=== PATIENT | male | born 1985 | race Caucasian/White ===

== ENCOUNTER 2016-08-13 13:18 | Emergency (ER) | payer MEDICAID ==
[~2016-08-13] VITALS: Ht 172.7 cm; Wt 70.0 kg
[2016-08-13] MEDS ORDERED: SODIUM CHLORIDE 0.9% 1,000 ML IV ONE ×2 (13:29→20:03)
[2016-08-13] MEDS ORDERED: OLANZAPINE 10 MG/VIAL IM ONE ×2 (13:30→13:37)
[2016-08-13] MEDS ORDERED: LORAZEPAM 2MG/ML CPJ IV ONE ×2 (13:30→20:15)
[2016-08-13] MEDS ORDERED: LORAZEPAM 2MG/ML CPJ ONE (13:37)
[2016-08-13 14:42] LABS: BASOPHILS % 0.5 % (0.0-2.0); EOSINOPHILS % 0.4 % (0.0-5.0); HEMATOCRIT. 37.2 % (42.0-52.0); LYMPHOCYTES % 17.3 % (20.0-50.0); MEAN CORPUSCULAR VOLUME 85.7 fL (80.0-94.0); MEAN PLATELET VOLUME 6.5 fl (7.4-10.4); MONOCYTES % 7.3 % (2.0-8.0); NEUTROPHILS % 74.5 % (40.0-76.0); PLATELET 297 x1000/uL (130-400); RED BLOOD CELL COUNT 4.35 mill/uL (4.7-6.1); RED CELL DISTRIBUTION WIDTH 14.1 % (11.6-14.6)
[2016-08-13 14:46] LABS: *AMPHETAMINES SCREEN URINE PRESUMTIVE POSITIVE (NEGATIVE); *BARBITURATES SCREEN URINE NEGATIVE (NEGATIVE); *BENZODIAZEPINES SCREEN URINE PRESUMTIVE POSITIVE (NEGATIVE); *COCAINE SCREEN URINE NEGATIVE (NEGATIVE); CANNABINOID URINE SCREEN PRESUMTIVE POSITIVE (NEGATIVE); METHADONE URINE SCREEN NEGATIVE (NEGATIVE); OPIATES URINE SCREEN NEGATIVE (NEGATIVE); PHENCYCLIDINE URINE SCREEN NEGATIVE (NEGATIVE)
[2016-08-13 14:50] LABS: CHLORIDE 107 mEq/L (98-107)
[2016-08-13 14:56] LABS: CARBON DIOXIDE 31 mEq/L (21-32); ETHANOL BLOOD < 10 mg/dL
[2016-08-13 20:33] LABS: CREATINE KINASE 543 IU/L (39-308)
[2016-08-14 09:00] VITALS: BP 110/65
== END 2016-08-14 09:32 | disposition home or self-care (01) ==
LOC: EDBD 13:26 → ER 13:26
DX: F15.121 Other stimulant abuse with intoxication delirium (principal); F12.121 Cannabis abuse with intoxication delirium; F11.121 Opioid abuse with intoxication delirium; G92 Toxic encephalopathy; E87.6 Hypokalemia; D64.9 Anemia, unspecified; R45.1 Restlessness and agitation
CPT/HCPCS: 36415; 80048; 80305; 80307; 80329; 82550; 85025; 96361; 96372; 96374; 96376; 99284; G0482; J2060; J3490; J7030; Z7610